=== PATIENT | female | born 1940 ===

== ENCOUNTER 2019-06-13 17:07 | Observation (INO) | payer MEDICARE ==
[2019-06-13] MEDS ORDERED: ONDANSETRON 4 MG/2 ML VIAL IVP STA ×2 (17:42→19:00)
[2019-06-13] MEDS ORDERED: MORPHINE SULFATE 4 MG/ML SYRINGE IV STA (17:42)
[2019-06-13] MEDS ORDERED: SODIUM CHLORIDE 0.9% 1,000 ML IV STA (17:42)
--- NOTE | 2019-06-13 17:59 | ED ---
Weakness HPI - General Chief complaint: Weakness Stated complaint: fall/hip fracture Time Seen by Provider: 06/13/19 17:16 Source: EMS, RN notes reviewed, old records reviewed Mode of arrival: EMS Limitations: no limitations - History of Present Illness Initial comments: This is a 79-year-old female here for evaluation patient is a for evaluation of pain leg pain bilaterally. Increasing weakness. Patient is end-stage renal failure patient who is opted not to do dialysis. Family is at bedside he does have provided history EMS also does provide history. Patient brought to ER after hospitalization at another hospital. She was discharged home was doing well and then today this started identity compensation. Patient states she is not making urine secondary renal failure. Denying any fevers and is complaining of right hip pain and bilateral leg pain. MD Complaint: generalized weakness, lack of energy, difficulty walking -: days(s) Location: generalized, LLE, RLE Severity: moderate Severity scale (1-10): 4 Consistency: constant Improves with: none Context: recent illness, history of similar Associated Symptoms: confusion, loss of appetite, nausea/vomiting - Related Data Allergies Allergy/AdvReac Type Severity Reaction Status Date / Time No Known Allergies Allergy Verified 06/13/19 17:41 Review of Systems ROS Statement: Those systems with pertinent positive or pertinent negative responses have been documented in the HPI. ROS Other: All systems not noted in ROS Statement are negative. Past Medical History Past Medical History: Atrial Fibrillation, Cancer, Diabetes Mellitus, Hyperlipidemia, Hypertension History of Any Multi-Drug Resistant Organisms: None Reported Past Surgical History: Unable to Obtain Past Psychological History: No Psychological Hx Reported Smoking Status: Former smoker Past Alcohol Use History: None Reported General Exam Limitations: no limitations General appearance: alert, in no apparent distress Head exam: Present: atraumatic, normocephalic, normal inspection Eye exam: Present: normal appearance, PERRL, EOMI. Absent: scleral icterus, conjunctival injection, periorbital swelling ENT exam: Present: normal exam, mucous membranes moist Neck exam: Present: normal inspection. Absent: tenderness, meningismus, lymphadenopathy Respiratory exam: Present: normal lung sounds bilaterally. Absent: respiratory distress, wheezes, rales, rhonchi, stridor Cardiovascular Exam: Present: regular rate, normal rhythm, normal heart sounds. Absent: systolic murmur, diastolic murmur, rubs, gallop, clicks GI/Abdominal exam: Present: soft, normal bowel sounds. Absent: distended, tenderness, guarding, rebound, rigid Extremities exam: Present: normal inspection, full ROM, normal capillary refill. Absent: tenderness, pedal edema, joint swelling, calf tenderness Back exam: Present: normal inspection Neurological exam: Present: alert, oriented X3, CN II-XII intact Psychiatric exam: Present: normal affect, normal mood Skin exam: Present: warm, dry, intact, normal color. Absent: rash Course Vital Signs 06/13/19 06/13/19 17:38 19:40 Temperature 97.8 F 93.6 F L Pulse Rate 60 61 Respiratory 16 20 Rate Blood Pressure 109/46 108/67 O2 Sat by Pulse 98 93 L Oximetry - Reevaluation(s) Reevaluation #1: 06/13/19 19:53 Medical records reviewed, patient has no prior hospitalizations here in the ER Reevaluation #2: 06/13/19 19:53 She is increase in speaking with family this is about where her renal function is Reevaluation #3: 06/13/19 19:54 The patient like she does admit to not seeing doctors Brandon for not wanting dialysis - Consultations Consultation #1: Spoke with [facility] Hospitalist On-Call Who Will Keep Patient for Admission EKG Findings - EKG Comments: EKG Findings:: EKG shows rhythm of 63, QRS 162, QTC 548 Medical Decision Making - Medical Decision Making 79 female here for persistent weakness we will make urine history of renal failure with worsening renal failure today. Dehydration bilateral lower e xtremity edema erythema will place on antibiotics and will admit for further evaluation and management - Lab Data Result diagrams: 06/13/19 17:41 06/13/19 17:41 Lab Results 06/13/19 06/13/19 06/13/19 Range/Units 17:41 17:41 17:41 WBC 8.9 (3.8-10.6) k/uL RBC 3.44 L (3.80-5.40) m/uL Hgb 11.1 L (11.4-16.0) gm/dL Hct 36.6 (34.0-46.0) % MCV 106.5 H (80.0-100.0) fL MCH 32.2 (25.0-35.0) pg MCHC 30.2 L (31.0-37.0) g/dL RDW 18.9 H (11.5-15.5) % Plt Count 142 L (150-450) k/uL Neutrophils % (Manual) 89 % Lymphocytes % (Manual) 10 % Monocytes % (Manual) 2 % Neutrophils # (Manual) 7.92 H (1.3-7.7) k/uL Lymphocytes # (Manual) 0.89 L (1.0-4.8) k/uL Monocytes # (Manual) 0.18 (0-1.0) k/uL Nucleated RBCs 4 H (0-0) /100 WBC Polychromasia Present Hypochromasia Marked Poikilocytosis Slight Poikilocytosis (manual Present Anisocytosis Slight Macrocytosis Marked A Target Cells Present PT (9.0-12.0) sec INR (<1.2) APTT (22.0-30.0) sec Sodium 143 (137-145) mmol/L Potassium 4.6 (3.5-5.1) mmol/L Chloride 117 H (98-107) mmol/L Carbon Dioxide 11 L (22-30) mmol/L Anion Gap 15 mmol/L BUN 81 H (7-17) mg/dL Creatinine 5.86 H (0.52-1.04) mg/dL Est GFR (CKD-EPI)AfAm 7 (>60 ml/min/1.73 sqM) Est GFR (CKD-EPI)NonAf 6 (>60 ml/min/1.73 sqM) Glucose 159 H (74-99) mg/dL Calcium 9.1 (8.4-10.2) mg/dL Phosphorus 7.0 H (2.5-4.5) mg/dL Magnesium 1.6 (1.6-2.3) mg/dL Total Bilirubin 0.7 (0.2-1.3) mg/dL AST 39 H (14-36) U/L ALT 21 (4-34) U/L Alkaline Phosphatase 119 (38-126) U/L Creatine Kinase 470 H (30-135) U/L Troponin I (0.000-0.034) ng/mL NT-Pro-B Natriuret Pep [id number] pg/mL Total Protein 5.9 L (6.3-8.2) g/dL Albumin 3.5 (3.5-5.0) g/dL 06/13/19 06/13/19 Range/Units 17:41 17:41 WBC (3.8-10.6) k/uL RBC (3.80-5.40) m/uL Hgb (11.4-16.0) gm/dL Hct (34.0-46.0) % MCV (80.0-100.0) fL MCH (25.0-35.0) pg MCHC (31.0-37.0) g/dL RDW (11.5-15.5) % Plt Count (150-450) k/uL Neutrophils % (Manual) % Lymphocytes % (Manual) % Monocytes % (Manual) % Neutrophils # (Manual) (1.3-7.7) k/uL Lymphocytes # (Manual) (1.0-4.8) k/uL Monocytes # (Manual) (0-1.0) k/uL Nucleated RBCs (0-0) /100 WBC Polychromasia Hypochromasia Poikilocytosis Poikilocytosis (manual Anisocytosis Macrocytosis Target Cells PT 12.0 (9.0-12.0) sec INR 1.2 H (<1.2) APTT 27.2 (22.0-30.0) sec Sodium (137-145) mmol/L Potassium (3.5-5.1) mmol/L Chloride (98-107) mmol/L Carbon Dioxide (22-30) mmol/L Anion Gap mmol/L BUN (7-17) mg/dL Creatinine (0.52-1.04) mg/dL Est GFR (CKD-EPI)AfAm (>60 ml/min/1.73 sqM) Est GFR (CKD-EPI)NonAf (>60 ml/min/1.73 sqM) Glucose (74-99) mg/dL Calcium (8.4-10.2) mg/dL Phosphorus (2.5-4.5) mg/dL Magnesium (1.6-2.3) mg/dL Total Bilirubin (0.2-1.3) mg/dL AST (14-36) U/L ALT (4-34) U/L Alkaline Phosphatase (38-126) U/L Creatine Kinase (30-135) U/L Troponin I 0.677 H* (0.000-0.034) ng/mL NT-Pro-B Natriuret Pep pg/mL Total Protein (6.3-8.2) g/dL Albumin (3.5-5.0) g/dL - Radiology Data Radiology results: report reviewed (Chest x-ray pelvis x-ray bilateral hip x-ray bilateral knee x-ray for triadic injury increased pleural effusions), image reviewed Disposition Clinical Impression: Dehydration, Weakness, Uremia, Altered mental state Disposition: ADMITTED IP TO THIS HOSP Condition: Fair Is patient prescribed a controlled substance at d/c from ED?: No Referrals: Garland Olivier, MARY [Primary Care Provider] - 1-2 days
--- NOTE | 2019-06-13 18:26 | XR ---
EXAMINATION TYPE: XR Hip Bilateral and AP pelvis DATE OF EXAM: 06/13/2019 COMPARISON: NONE HISTORY: Pain TECHNIQUE: 5 views FINDINGS: Pelvic ring is intact. The proximal femurs are intact. I see no hip fracture. There is exte nsive vascular calcification. Sacroiliac joints are intact. IMPRESSION: No fracture seen. Extensive atherosclerotic vascular calcification.
[2019-06-13 18:28] LABS: INR 1.2 (<1.2); Partial Thromboplastin Time 27.2 sec (22.0-30.0)
--- NOTE | 2019-06-13 18:28 | XR ---
EXAMINATION TYPE: XR knee complete bilateral DATE OF EXAM: 06/13/2019 COMPARISON: NONE HISTORY: Pain TECHNIQUE: 6 views FINDINGS: There is severe narrowing of the medial joint space of the left knee. There is lateral tibi al subluxation of the left tibia. There is extensive spurring of the femoral and tibial condyles of t he left knee. Right knee shows no significant joint space narrowing. There is calcification of the menisci of the r ight knee. There is mild left side knee joint effusion. There is extensive vascular calcification. IMPRESSION: Moderately severe osteoarthritis in the left knee. Minor spurring in the right knee with chondrocalcinosis. No fracture.
[2019-06-13 18:29] LABS: Albumin 3.5 g/dL (3.5-5.0); Calcium 9.1 mg/dL (8.4-10.2); Magnesium 1.6 mg/dL (1.6-2.3); Potassium 4.6 mmol/L (3.5-5.1); Total Bilirubin 0.7 mg/dL (0.2-1.3); Total Protein 5.9 g/dL (6.3-8.2)
[2019-06-13 18:37] LABS: Anisocytosis Slight; HCT 36.6 % (34.0-46.0); HGB 11.1 gm/dL (11.4-16.0); Hypochromasia Marked; MCH 32.2 pg (25.0-35.0); MCHC 30.2 g/dL (31.0-37.0); MCV 106.5 fL (80.0-100.0); Macrocytosis Marked; Mean Platelet Volume 9.2; Platelet Count 142 k/uL (150-450); Poikilocytosis Slight; RBC 3.44 m/uL (3.80-5.40); RDW 18.9 % (11.5-15.5)
--- NOTE | 2019-06-13 18:38 | XR ---
EXAMINATION TYPE: XR chest 2V DATE OF EXAM: 06/13/2019 COMPARISON: 10/26/2011 HISTORY: Weakness. Short of breath TECHNIQUE: 2 views FINDINGS: Heart is enlarged. There is no gross heart failure. There is slight blunting of the costoph renic angles. There is mild coarsening of the lung markings. Bony thorax is intact. IMPRESSION: Cardiomegaly. No heart failure. Pulmonary fibrotic changes. Pleural fluid is decreased co mpared to old exam.
[2019-06-13 18:53] LABS: Neutrophils % (M) 89 %; Nucleated Red Blood Cells 4 /100 WBC (0-0); Total Cells Counted 200
[2019-06-13 18:54] LABS: Lymphocytes # (M) 0.89 k/uL (1.0-4.8); Monocytes # (M) 0.18 k/uL (0-1.0); Neutrophils # (M) 7.92 k/uL (1.3-7.7); Poikilocytosis (M) Present; Polychromasia Present; Target Cells Present; WBC 8.9 k/uL (3.8-10.6)
[2019-06-13] MEDS ORDERED: MORPHINE SULFATE 4 MG/ML SYRINGE IVP STA (19:00)
[2019-06-13] MEDS ORDERED: LORazepam 2 MG/ML INJ IV STA (19:00)
[2019-06-13] MEDS ORDERED: INSULIN DETEMIR (LEVEMIR) 100 UNIT/ML SYR SQ SCH (21:00)
[2019-06-13] MEDS ORDERED: ONDANSETRON 4 MG/2 ML VIAL IVP PRN (21:40)
[2019-06-13] MEDS ORDERED: MORPHINE SULFATE 2 MG/ML SYRINGE IVP PRN (21:40)
--- NOTE | 2019-06-13 21:41 | P.HPIM ---
History of Present Illness H&P Date: 06/13/19 Chief Complaint: Weakness and pain The patient is a 79-year-old female with a past medical history of and essential hypertension, type 2 diabetes , chronic kidney disease stage IV/V who presents to the ER via private vehicle with chief complaint of weakness. Appar ently the patient has been increasingly weak over the last 2 days , she has been unable to get up and unable to turn while in bed. She reports that she normally ambulates with a walker but states that her gait has been increasingly unsteady prior to being unable to get up. She also reports some right hip pain and some tenderness in the right lower extremity. She reports some dizziness and decre ased oral fluid intake, she denies any fall or trauma . She reports recently being treated at [place] this past Thursday and Thursday when she was admitted overnight for right lower extremity cellulitis Subsequently discharged home on oral doxycycline. She denies chest pain, difficulty breathing and denies any subjective fevers or chills, but reports decreased appetite and subsequently had a episodes of nausea and vomiting in the ER. The patient reports a history of chronic kidney disease and has been seen by Dr. Taylor who is her primary trimming caser, she reports that she has refused renal replacement therapy and is adamant about continuing to do so. She reports a making little to no urine. She reports a history of right breast cancer status post chemotherapy and subsequent mastectomy approximately 7 years ago. In the ER the patient had a comprehensive workup hemoglobin was 11.1, platelet 142, sodium 143, potassium 4.6, serum bicarb 11, BUN 81, creatinine 5.86, EKG showed no suggestion of acute ischemia, chest x-ray showed cardiomegaly and no heart failure with primary fibrotic changes. Left knee showed severe moderate osteoarthritis, with minor spurring in the right knee with chondrocalcinosis, right hip x-ray showed extensive atherosclerotic vascular calcification. Patient was given a dose of morphine and Rocephin recommended for admission Review of Systems Pertinent positives per HPI all other review of system otherwise negative Past Medical History Past Medical History: Atrial Fibrillation, Cancer, Diabetes Mellitus, Hyperlipidemia, Hypertension History of Any Multi-Drug Resistant Organisms: None Reported Past Surgical History: Unable to Obtain Past Psychological History: No Psychological Hx Reported Smoking Status: Former smoker Past Alcohol Use History: None Reported Medications and Allergies Home Medications Medication Instructions Recorded Confirmed Type Allopurinol [Zyloprim] 100 mg PO DAILY 06/13/19 06/13/19 History Aspirin EC [Ecotrin Low Dose] 81 mg PO DAILY 06/13/19 06/13/19 History Atenolol [Tenormin] 12.5 mg PO DAILY 06/13/19 06/13/19 History Calcitriol 0.5 mcg PO DIRECTED 06/13/19 06/13/19 History Cyanocobalamin (Vitamin B-12) 1,000 mcg PO DAILY 06/13/19 06/13/19 History [Vitamin B-12] Doxycycline Monohydrate [Monodox] 100 mg PO BID 06/13/19 06/13/19 History Ergocalciferol [Vitamin D2] 50,000 unit PO Q30D 06/13/19 06/13/19 History Furosemide [Lasix] 20 mg PO DIRECTED 06/13/19 06/13/19 History Insulin Glargine,Hum.rec.anlog 25 unit SQ HS 06/13/19 06/13/19 History [Lantus Solostar] Levothyroxine Sodium [Synthroid] 75 mcg PO DAILY 06/13/19 06/13/19 History Sodium Bicarbonate Tab 650 mg PO TID 06/13/19 06/13/19 History Allergies Allergy/AdvReac Type Severity Reaction Status Date / Time No Known Allergies Allergy Verified 06/13/19 20:02 Physical Exam Vitals: Vital Signs Temp Pulse Resp BP Pulse Ox 06/13/19 20:21 68 15 98/43 100 06/13/19 19:40 93.6 F L 61 20 108/67 93 L 06/13/19 17:38 97.8 F 60 16 109/46 98 Intake and Output 06/13/19 06/13/19 06/13/19 06:59 14:59 22:59 Other: Weight 72.575 kg Constitutional: No acute distress, conversant, pleasant Eyes: Anicteric sclerae, moist conjunctiva, no lid-lag, PERRLA ENMT: NC/AT,Oropharynx clear, no erythema, exudates Neck:Supple, FROM, no masses, or JVD, No carotid bruits; No thyromegaly Lungs: Clear to auscultation, Clear to percussion, Normal respiratory effort, no accessory muscle use Cardiovascular: Heart regular in rate and rhythm, No murmurs, gallops, or rubs +2 pitting peripheral edema of the bilateral lower extremity Abdominal: Soft Nontender, nom distended, no guarding, no rebound or rigidity, Normoactive bowel sounds No hepatomegaly, No splenomegaly, No palpable mass No abdominal wall hernia noted Skin: Normal temperature, tone, texture, turgor, No induration No subcutaneous nodules, No rash, lesions, right lower extremity ulcer with minimal surrounding erythema Extremities:No digital cyanosis No clubbing, Pedal pulses intact and symmetrical Radial pulses intact and symmetrical Normal gait and station, No calf tenderness Psychiatric: Alert and oriented to person, place and time, Appropriate affect Intact judgement Neuro: Muscles Strength 5/5 in all 4 extremities, Sensation to light touch grossly present throughout, Cranial nerves II-XII grossly intact. No focal sensory deficits Results CBC & Chem 7: 06/13/19 17:41 06/13/19 17:41 Labs: Abnormal Lab Results - Last 24 Hours (Table) 06/13/19 06/13/19 06/13/19 Range/Units 17:41 17:41 17:41 RBC 3.44 L (3.80-5.40) m/uL Hgb 11.1 L (11.4-16.0) gm/dL MCV 106.5 H (80.0-100.0) fL MCHC 30.2 L (31.0-37.0) g/dL RDW 18.9 H (11.5-15.5) % Plt Count 142 L (150-450) k/uL Neutrophils # (Manual) 7.92 H (1.3-7.7) k/uL Lymphocytes # (Manual) 0.89 L (1.0-4.8) k/uL Nucleated RBCs 4 H (0-0) /100 WBC Macrocytosis Marked A INR 1.2 H (<1.2) Chloride 117 H (98-107) mmol/L Carbon Dioxide 11 L (22-30) mmol/L BUN 81 H (7-17) mg/dL Creatinine 5.86 H (0.52-1.04) mg/dL Glucose 159 H (74-99) mg/dL Phosphorus 7.0 H (2.5-4.5) mg/dL AST 39 H (14-36) U/L Creatine Kinase 470 H (30-135) U/L Troponin I (0.000-0.034) ng/mL Total Protein 5.9 L (6.3-8.2) g/dL 06/13/19 Range/Units 17:41 RBC (3.80-5.40) m/uL Hgb (11.4-16.0) gm/dL MCV (80.0-100.0) fL MCHC (31.0-37.0) g/dL RDW (11.5-15.5) % Plt Count (150-450) k/uL Neutrophils # (Manual) (1.3-7.7) k/uL Lymphocytes # (Manual) (1.0-4.8) k/uL Nucleated RBCs (0-0) /100 WBC Macrocytosis INR (<1.2) Chloride (98-107) mmol/L Carbon Dioxide (22-30) mmol/L BUN (7-17) mg/dL Creatinine (0.52-1.04) mg/dL Glucose (74-99) mg/dL Phosphorus (2.5-4.5) mg/dL AST (14-36) U/L Creatine Kinase (30-135) U/L Troponin I 0.677 H* (0.000-0.034) ng/mL Total Protein (6.3-8.2) g/dL Assessment and Plan Assessment: Acute kidney injury superimposed on chronic kidney disease right lower extremity cellulitis The right lower extremity ulcers Type 2 diabetes Essential hypertension Metabolic acidosis Uremia Thrombocytopenia Elevaed troponin Plan: The patient is admitted anticipated greater than 2 midnight stay after pres enting with generalized weakness and found to have failed outpatient therapy and treatment of her right upper extremity cellulitis with with ulcers in the setting of a diabetic patient chronic kidney disease stage IV and V. 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 Nephrology is been consulted, the patient continues to refuse renal replacement therapy, she is noted to be uremic with metabolic acidosis is likely contributing to her nausea. We'll plan to ultrasound the right lower extremity to rule out DVT. The patient is noted to have a mildly elevated troponin likely unrelated to cardiac significance in the setting of severe chronic kidney disease. We'll manage supportively with antiemetics and morphine. Continue to follow her clinical course CODE STATUS: DO NOT RESUSCITATE Discussed plan of care with: Patient's and son Mounika Phillips Anticipated discharge: 2-[address]: Home We'll plan to ultrasound the right lower extremity to rule out DVT
--- NOTE | 2019-06-13 22:43 | US ---
EXAMINATION TYPE: US venous doppler duplex LE RT DATE OF EXAM: 06/13/2019 10:31 PM COMPARISON: NONE CLINICAL HISTORY: rule out dvt . Rule out DVT. No hx of DVT. Patient takes baby aspirin. SIDE PERFORMED: Right TECHNIQUE: The lower extremity deep venous system is examined utilizing real time linear array sonog rachel with graded compression, doppler sonography and color-flow sonography. VESSELS IMAGED: Common Femoral Vein Deep Femoral Vein Greater Saphenous Vein * Femoral Vein Popliteal Vein Small Saphenous Vein * Proximal Calf Veins (* superficial vessels) Right Leg: Limited exam due to patient's positioning. EIV not visualized. Difficult to visualize dis sherly femoral vein in transverse view. Limited evaluation of popliteal vein and prox calf veins due to patient's position. Color flow is seen. No evidence of DVT in veins imaged. IMPRESSION: No evidence of deep venous thrombosis in the right leg.
[2019-06-13 22:52] LABS: Glucose,Whole Blood 155 mg/dL (75-99)
[2019-06-13 22:53] LABS: Appearance,Urine Cloudy (Clear); Bacteria,Urine Few /hpf; Bilirubin,Urine Negative (Negative); Blood,Urine Moderate (Negative); Budding Yeast,Urine Many /hpf; Color,Urine Yellow; Glucose,Urine (UA) Negative (Negative); Ketones,Urine Negative (Negative); Leukocyte Esterase,Urine Moderate (Negative); Nitrite,Urine Negative (Negative); PH, Urine 5.5 (5.0-8.0); Protein,Urine 2+ (Negative); RBC,Urine 4 /hpf (0-5); Specific Gravity,Urine 1.016 (1.001-1.035); Urobilinogen,Urine <2.0 mg/dL (<2.0); WBC,Urine 15 /hpf (0-5)
[2019-06-14] MEDS ORDERED: DEXTROSE 5% IN WATER 1,000 ML with SODIUM BICARB (1 MEQ/ML) 150 ML IV SCH ×2
--- NOTE | 2019-06-14 00:04 | P.PN ---
Progress Note - Text Progress Note Date: 06/14/19 Active diagnoses : Acute kidney injury superimposed on chronic kidney disease IV/V, right lower extremity ulcer, right lower extremity cellulitis Participants: Patient and son Alan CHETAN (via phone) Brief discussion: The patient is here with nonhealing right lower extremity ulcer with possible calciphylaxis and cellulitis and at present only wants maximal medical therapy, she denies any willingness that he wouldn't consider any type of surgery at this point and states that she has lived a long life, she has a history of breast cancer status post chemotherapy and mastectomy. Patient has underlying chronic kidney disease stage IV stage V and has previously been seen by nephrology but continues to adamantly refuse renal replacement therapy, In discussing patient's CODE STATUS and explaining the overall process of CPR ACLS intubation, the patient has elected to be a DO NOT RESUSCITATE, the patient's DPOA son Alan was available by phone and was amenable and agreeable to the patient's wishes. CODE STATUS : DO NOT RESUSCITATE This discussion took approximately 17 minutes
[2019-06-14] MEDS ORDERED: INSULIN DETEMIR (LEVEMIR) 100 UNIT/ML SYR SQ SCH (04:32)
[2019-06-14 06:23] VITALS: TEMP 91.3
[2019-06-14 08:40] LABS: Anisocytosis Slight; HCT 37.1 % (34.0-46.0); HGB 11.3 gm/dL (11.4-16.0); Hypochromasia Marked; MCH 32.2 pg (25.0-35.0); MCHC 30.4 g/dL (31.0-37.0); MCV 105.8 fL (80.0-100.0); Macrocytosis Marked; Mean Platelet Volume 9.2; Platelet Count 122 k/uL (150-450); Poikilocytosis Slight; RDW 18.8 % (11.5-15.5)
[2019-06-14] MEDS ORDERED: HEPARIN SODIUM,PORCINE 5,000 UNIT/ML 1 ML VIAL SQ SCH (09:00)
[2019-06-14] MEDS ORDERED: ATENOLOL 12.5 MG TAB PO SCH (09:00)
[2019-06-14] MEDS ORDERED: ENOXAPARIN 40 MG/0.4 ML SYRINGE SQ SCH (09:00)
[2019-06-14 09:05] VITALS: BP 95/42; PULSE 51; RESP 18
[2019-06-14] MEDS: SODIUM BICARBONATE TAB 650 MG TAB PO SCH ×3 (09:17→09:21)
[2019-06-14 09:18] LABS: Albumin 3.2 g/dL (3.5-5.0); Calcium 8.7 mg/dL (8.4-10.2); Magnesium 1.6 mg/dL (1.6-2.3); Potassium 4.2 mmol/L (3.5-5.1); Total Bilirubin 0.6 mg/dL (0.2-1.3); Total Protein 5.7 g/dL (6.3-8.2)
[2019-06-14] MEDS: CYANOCOBALAMIN 500 MCG TAB PO SCH ×2 (09:18→09:22)
[2019-06-14] MEDS: ASPIRIN 81 MG PO SCH ×2 (09:18→09:22)
[2019-06-14] MEDS: LEVOTHYROXINE 75 MCG TAB PO SCH ×2 (09:18→09:22)
[2019-06-14 09:36] LABS: Crenated RBC Present; Monocytes # (M) 0.23 k/uL (0-1.0); Neutrophils # (M) 10.18 k/uL (1.3-7.7); Neutrophils % (M) 87 %; Nucleated Red Blood Cells 8 /100 WBC (0-0); Target Cells Present; Total Cells Counted 200; WBC 11.7 k/uL (3.8-10.6)
[2019-06-14] MEDS ORDERED: LORazepam 2 MG/ML INJ IV PRN (10:12)
[2019-06-14] MEDS ORDERED: PANTOPRAZOLE 40 MG/10 ML VIAL IVP SCH (10:15)
--- NOTE | 2019-06-14 15:37 | P.DS ---
Providers Date of admission: 06/13/19 19:56 Expected date of discharge: 06/14/19 Attending physician: Leonel Manrique MD Primary care physician: Garland Olivier [facility] Course: Discharge Diagnosis: DISCHARGED TO HOSPICE CARE Acute kidney injury on chronic kidney disease stage V Anion gap metabolic acidosis Right lower extremity cellulitis with ulcer present on admission Diabetes mellitus 2 Hypertension Thrombocytopenia Type II non-STEMI likely secondary to renal failure Anemia, undetermined etiology Hospital Course: Patient is 79-year-old female past medical history of hypertension, diabetes mellitus type 2, chronic kidney disease 4/5 who presented to the ER with chief complaint of weakness. In the emergency department she underwent an extensive evaluation. Her initial vital signs were within normal limits. Initial laboratory analysis showed an anemia, anion gap metabolic acidosis with a bicarb of 11, BUN 81, creatinine 56, and GFR of 6. She was also found to have an elevated troponin at 0.667 elevated BNP at 107,000. Due to her weakness she had an x-ray done of her bilateral hips and AP pelvis which showed no fracture, left knee x-ray which showed osteoarthritis, right knee x-ray which showed minor spurring in the right knee with chondrocalcinosis, and a chest x-ray which showed cardiomegaly but no overt heart failure. Lower extremity venous Doppler showed no evidence of DVT in the right leg. Initially she was treated with pain medications, antiemetics, and bicarb in her IV fluids. She was also given a dose of Rocephin secondary to possible failed outpatient treatment of right large committee cellulitis. She was initially admitted as inpatient. Patient then began refusing oral medications. After discussion with her and her son she really does not want to seek additional medical care and would like to be kept comfortable for her time left. She was told several months ago that she would need long-term dialysis, at that point in time she refused to stop seeing the water taxi captain. She still would not want dialysis at this point in time. She is aware that her cardiac markers increased. Her and the family are comfortable with hospice care. Hospice consult was placed and arrangements were made to be discharged to hospice she will be under their care at [facility]. Patient seen and examined at bedside. She denies any chest pain or overt shortness of breath. She still feeling very weak and tired. Does not want any further medical care, testing, or further imaging. She just wants to be kept comfortable and realizes that her time is limited. Vital signs reviewed and stable. General: Ill-appearing, no distress, appears at stated age Eyes: EOMI, no lid lag, anicteric sclera Mouth: no lip lesion, mucus membranes dry Cardiovascular: S1S2 reg, no murmur, positive posterior tibial pulse bilateral, Lungs: CTA bilateral, no rhonchi, no rales , no accessory muscle use Abdominal: soft, nontender to palpation, no guarding, no appreciable organomegaly Psych: Alert, oriented, appropriate affect A total of 35 minutes of time were spent preparing this complex discharge summary . Patient Condition at Discharge: Fair Plan - Discharge Summary Discharge Rx Participant: No New Discharge Prescriptions: New Insulin Detemir (Levemir) [Levemir] 25 unit SQ HS syr Continue Levothyroxine Sodium [Synthroid] 75 mcg PO DAILY Aspirin EC [Ecotrin Low Dose] 81 mg PO DAILY Allopurinol [Zyloprim] 100 mg PO DAILY Sodium Bicarbonate Tab 650 mg PO TID Furosemide [Lasix] 20 mg PO DIRECTED Discontinued Insulin Glargine,Hum.rec.anlog [Lantus Solostar] 25 unit SQ HS Calcitriol 0.5 mcg PO DIRECTED Ergocalciferol [Vitamin D2] 50,000 unit PO Q30D Atenolol [Tenormin] 12.5 mg PO DAILY Cyanocobalamin (Vitamin B-12) [Vitamin B-12] 1,000 mcg PO DAILY Doxycycline Monohydrate [Monodox] 100 mg PO BID Discharge Medication List Allopurinol [Zyloprim] 100 mg PO DAILY 06/13/19 [History] Aspirin EC [Ecotrin Low Dose] 81 mg PO DAILY 06/13/19 [History] Furosemide [Lasix] 20 mg PO DIRECTED 06/13/19 [History] Levothyroxine Sodium [Synthroid] 75 mcg PO DAILY 06/13/19 [History] Sodium Bicarbonate Tab 650 mg PO TID 06/13/19 [History] Insulin Detemir (Levemir) [Levemir] 25 unit SQ HS syr 06/14/19 [Rx] Follow up Appointment(s)/Referral(s): Garland Olivier, MARY [Primary Care Provider] - 1-2 days [facility], [NON-STAFF] - As Needed Discharge Disposition: HOME WITH HOSPICE
--- NOTE | 2019-06-17 05:47 | CDI ---
Documentation Clarification Form Date: 06/17/2019 05:35:03 AM From: Yanni Narayanan Phone: If you have a question about this query, please contact Jennifer Rosa Suit Attendant at [phone] between 8am and 5pm. Admit Date: 06/13/2019 07:56:00 PM Patient Name: Parul King Visit Number: [id number] Discharge Date: 06/14/2019 05:36:00 PM ATTENTION: The Clinical Documentation Specialists (CDI) and [facility] Coding Staff appreciate your assistance in clarifying documentation. Please respond to the clarification below the line at the bottom and electronically sign. The CDI & [facility] Coding staff will review the response and follow-up if needed. Please note: Queries are made part of the Legal Health Record. If you have any questions, please contact the author of this message via ITS. Dr. Leonel Manrique Conflicting documentation has been found in the medical record: H and P documents RLE cellulitis and ulcer. DCS documents RUE cellulitis and ulcer. Please clarify site of cellulitis and ulcer and its origin. Patient also has diabetes. History/Risk Factors: Diabetes, CKD, chondrocalcinosis, uremia, acidosis Treatment: patient going to hospice In your opinion, what is the most clinically appropriate diagnosis for this patient? RLE cellulitis and ulcer linked to DM RLE cellulitis and ulcer not linked to DM RUE cellulitis and ulcer linked to DM RUE cellulitis and ulcer not linked to DM Other explanation of clinical findings Unable to determine (no explanation for clinical findings) unable to determine MTDD
== END 2019-06-14 17:36 ==
LOC: EC 17:07 → INTOOBSV 19:56 → 5NMEDONC 19:56 → UNDODISIN 06-14 17:36
PROVIDERS: ADMIT Family Medicine; ATTEND Family Medicine
DX: N17.9 Acute kidney failure, unspecified (principal); N18.6 End stage renal disease; E87.2 Acidosis; L03.115 Cellulitis of right lower limb; L97.919 Non-pressure chronic ulcer of unspecified part of right lower leg with unspecified severity; I12.0 Hypertensive chronic kidney disease with stage 5 chronic kidney disease or end stage renal disease; D69.6 Thrombocytopenia, unspecified; I21.A1 Myocardial infarction type 2; D64.9 Anemia, unspecified; E86.0 Dehydration; I48.91 Unspecified atrial fibrillation; E11.22 Type 2 diabetes mellitus with diabetic chronic kidney disease; I51.7 Cardiomegaly; M17.12 Unilateral primary osteoarthritis, left knee; M11.261 Other chondrocalcinosis, right knee; I70.90 Unspecified atherosclerosis; E78.5 Hyperlipidemia, unspecified; Z51.5 Encounter for palliative care; Z66 Do not resuscitate; Z85.3 Personal history of malignant neoplasm of breast; Z87.891 Personal history of nicotine dependence; Z79.4 Long term (current) use of insulin; Z79.890 Hormone replacement therapy; Z79.82 Long term (current) use of aspirin; Z79.899 Other long term (current) drug therapy; Z92.21 Personal history of antineoplastic chemotherapy; Z90.11 Acquired absence of right breast and nipple; M79.605 Pain in left leg; M79.604 Pain in right leg
CPT/HCPCS: 96376 ×2; 96365; 96366; 96372; 96375 ×2; 99285; 36415; 93005; 83880; 80053 ×2; 82550; 83735 ×2; 84100; 84484 ×2; 85025 ×2; 85610; 85730; 81001; 87040; 87086; 73562; 73521; 71046; 93971; G0378 ×2; J2270; J1644; J2405 ×2; J0696 ×2; C9113; 96361; 96367; 96368